=== PATIENT | male | born 1980 | race Caucasian/White ===

== ENCOUNTER 2018-07-17 12:35 | Emergency (ER) | payer BC ==
[~2018-07-17] VITALS: Wt 98.1 kg
[2018-07-17 12:38] VITALS: BP 139/80; PULSE 63; RESP 19
--- NOTE | 2018-07-17 13:38 | ERD ---
ER Documentation Chief Complaint Chief Complaint bib self, cc: CWP, "I have anxiety, many problems in my life" HPI 37-year-old male presents the emergency department complaining of a left-sided sharp stabbing somatic chest wall pain that has occurred over the last few days associated with anxiety. He states he has significant anxiety but also has been drinking alcohol and occasionally using cocaine. His chest pain has been getting any better or worse associated with the use of the drugs and alcohol. His last use of drugs and alcohol he states was approximately 5 days ago. He continues to describe a nonspecific discomfort underneath his left breast. He denies any shortness of breath or palpitations. Denies any fevers or chills. His biggest concern is not the chest discomfort but the significant anxiety. However, he denies any auditory or visual hallucinations, suicidal or homicidal thoughts. ROS All systems reviewed and are negative except as per history of present illness. Allergies Allergies: Coded Allergies: No Known Allergy (Unverified , 07/17/18) FmHx No history of heart disease Physical Exam Vitals Vital Signs Date Temp Pulse Resp B/P (MAP) Pulse Ox O2 O2 Flow FiO2 Time Delivery Rate 07/17/18 98.1 63 19 139/80 100 12:38 (99) Physical Exam GENERAL: The patient is well developed and appropriate for usual state of health in no apparent distress HEENT: Pupils equal, round, and reactive to light. EOMI. There is no scleral icterus. NECK: C-spine is soft and supple, there is no meningismus. There is no cervical lymphadenopathy. LUNGS: Clear to auscultation bilaterally. There are no rales, wheezes or rhonchi. HEART: Regular rate and rhythm, no murmurs, clicks, rubs or gallops. ABDOMEN: Soft, non-tender, non-distended. There are bowel sounds in all four quadrants. No rebound or guarding. EXTREMITIES: There is no peripheral cyanosis or edema. No focal swelling or erythema. NEURO: The patient moves all four extremities with 5/5 strength. Cranial nerves II - XII are intact. Normal gait. Alert and oriented SKIN: There is no apparent rash or petechiae. HEME/LYMPHATIC: There is no evidence of excessive bruising or lymphedema. PSYCHIATRIC: Awake, alert, oriented. Mildly anxious. No suicidal homicidal thoughts, no auditory visual hallucinations. Procedures/MDM Patient was taken to a room, seen and evaluated. Comfort measures were initiated. Diagnostic tests were ordered and reviewed. EK lead EKG reviewed by myself: Normal Sinus Rhythm Normal [place] and intervals No ST elevation, depression, or T wave inversion Impression: Normal EKG MED[employer] DECISION MAKIN-year-old male with no significant cardiac risk factors other than the use of cocaine 5 days ago presents the emergency department with what appears to be a nonspecific chest discomfort and anxiety. This seems all be related to his drug abuse. However, his EKG is completely nonischemic and reassuring this does not appear to be [place] related. His lungs are clear and he has no indications of significant pulmonary concerns. He is overall clinically well and seems appropriate for outpatient supportive care. Departure Diagnosis: Primary Impression: Anxiety Condition: Stable Patient Instructions: Anxiety Reaction DORIE MARIANO Jul 17, 2018 13:38
== END 2018-07-17 14:54 | disposition home or self-care (01) ==
LOC: FTE 12:35
DX: F41.9 Anxiety disorder, unspecified (principal)